=== PATIENT | female | born 1950 | race Caucasian/White ===

== ENCOUNTER 2024-11-19 06:20 | Day surgery (SDC) | payer OTHER, SELFPAY ==
[2024-11-19 07:21] LABS: Glucose - Point of Care 171 mg/dl (70-99)
== END 2024-11-19 08:31 | disposition home or self-care (01) ==
LOC: GI 06:20
PROVIDERS: ATTENDING PHYSICIAN Internal Medicine; FAMILY PHYSICIAN Family Medicine
DX: Z12.11 Encounter for screening for malignant neoplasm of colon (principal); D12.2 Benign neoplasm of ascending colon; D12.3 Benign neoplasm of transverse colon; K63.5 Polyp of colon; K57.30 Diverticulosis of large intestine without perforation or abscess without bleeding; Z86.0100 Personal history of colon polyps, unspecified; Z98.0 Intestinal bypass and anastomosis status
CPT/HCPCS: 45385; 45380; 82962; 88305